=== PATIENT | male | born 1960 | race Caucasian/White ===

== ENCOUNTER → 2016-07-09 | Outpatient (CLI) | payer OTHER ==
--- NOTE | 2016-07-09 09:54 | DX ---
Right Ankle, Three Views History: ORIF distal tibia and ankle fracture status post hardware placement. Comparison: June 06, 2016. Findings: Fixation plate and multiple screws through the distal tibia and talus with hardware fusion. The tibiotalar joint space appears slightly less evident than previous study suggesting partial bony fusion. Distal fibula has been resected. There is lateral soft tissue swelling. Plantar calcaneal sp ur. Impacted fracture of the posterior aspect of the talus again noted. On the lateral view, there is no evidence of complete fusion. Slight bone resorption also noted in the medial malleolus and distal tibial cortex. Impression: Tibiotalar fusion hardware demonstrates possible slight callus formation at the tibiotala r joint space, although joint space still remains partially evident without evidence of complete bony fusion.
== END ==
LOC: BMCIMAGING 08:49
PROVIDERS: ATTEND Podiatrist Foot & Ankle Surgery
DX: Z47.89 Encounter for other orthopedic aftercare (principal)

== ENCOUNTER → 2016-08-01 | Outpatient (CLI) | payer OTHER ==
--- NOTE | 2016-08-01 09:27 | DX ---
Right Foot , 3 weightbearing views History: Postoperative 9 weeks, delayed healing, Z09, neuropathy Comparison: December 08, 2014 Findings: There is new orthopedic plating of the distal fibula, associated with pretibial soft tissue swelling. There is a healing posterior malleolar fracture. There is a subtle suggestion of early dif fuse bone loss developing in the foot, greatest in the mid foot, consistent with disuse osteoporosis. There is new degenerative cyst formation on either side of the first metatarsophalangeal joint. Ther e is a chronic stable healed erosion involving the proximal lateral base of the proximal phalanx of t he fifth toe. There are chronic erosions involving the fifth metatarsal head. There is no periosteal reaction or evidence for osteomyelitis. There are chronic dorsal and plantar calcaneal spurs. 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
--- NOTE | 2016-08-01 10:54 | DX ---
Right ankle series weightbearing 3 views 0905 hours. History: Rule out delayed healing. Follow-up arthrodesis. Findings: Comparison to July 09, 2016 and studies dating back to May 19, 2016. Internal fixation plate and arthrodesis screws are seen across the tibiotalar joint. There has been s urgical resection of the distal fibula. There may be some early bony fusion along the anterior aspect of the tibiotalar joint. There is persistent lucency along the posterior aspect as well as midportio n of the tibiotalar joint on the lateral view. The hardware is in stable position and alignment. The talar dome appears to be flattened anteriorly. No erosions are seen. Moderate calcaneal spurs are sta ble. Mild diffuse soft tissue swelling is stable about the ankle joint. Impression: 1. Stable position of hardware from prior arthrodesis procedure right ankle. 2. Resection of the distal right fibula. 3. Early bony fusion is suspected across the anterior aspect of the tibiotalar joint. 4. Stable moderate calcaneal spurs.
== END ==
LOC: BMCIMAGING 08:35
PROVIDERS: ATTEND Podiatrist Foot & Ankle Surgery
DX: Z09 Encounter for follow-up examination after completed treatment for conditions other than malignant neoplasm (principal); Z98.1 Arthrodesis status; M77.31 Calcaneal spur, right foot

== ENCOUNTER → 2016-09-19 | Outpatient (CLI) | payer MEDICAID | LOC: BMCIMAGING 08:52 | PROVIDERS: ATTEND Podiatrist Foot & Ankle Surgery | DX: Z09 Encounter for follow-up examination after completed treatment for conditions other than malignant neoplasm (principal) ==

== ENCOUNTER → 2016-12-09 | Outpatient (CLI) | payer MEDICAID | LOC: FIMAGING 07:37 | PROVIDERS: ATTEND Podiatrist Foot & Ankle Surgery | DX: Z09 Encounter for follow-up examination after completed treatment for conditions other than malignant neoplasm (principal); Z98.1 Arthrodesis status; M19.071 Primary osteoarthritis, right ankle and foot ==

== ENCOUNTER 2017-04-16 07:11 | Day surgery (SDC) | payer MEDICAID ==
[2017-04-16] MEDS ORDERED: fentaNYL 100 MCG/2 ML INJ IVP ONE (07:13)
[2017-04-16] MEDS ORDERED: ATROPINE SULFATE 1 MG/10 ML SYR IVP ONE (07:13)
[2017-04-16] MEDS ORDERED: BENZOCAINE UNIT DOSE SPRAY HURRICAINE MM ONE (07:13)
[2017-04-16] MEDS ORDERED: MIDAZOLAM 2 MG/2 ML VIAL IVP ONE (07:13)
[2017-04-16] MEDS ORDERED: NS 500 ML IV ONE (07:13)
--- NOTE | 2017-04-16 07:32 | CPEKG ---
Heart Rate: 72 RR Interval: 833 QRSD Interval: 110 QT Interval: 408 QTC Interval: 447 QRS [place]: -32 T Wave [place]: 38 EKG Severity - ABNORMAL ECG - EKG Impression: ATRIAL FIBRILLATION, V-RATE 55-91 EKG Impression: NONSPECIFIC INTRAVENTRICULAR CONDUCTION DELAY EKG Impression: ATRIAL FIBRILLATION HAS REPLACED NORMAL SINUS RHYTHM ON PRIOR ECG Electronically Signed By: Ace Parikh 19-Apr-2017 08:38:21
[2017-04-16 08:02] LABS: ANION GAP 9 mEq/L (8-16); CALCIUM 9.7 mg/dL (8.5-10.4); CARBON DIOXIDE 24 mEq/l (22-31); CHLORIDE 105 mEq/L (97-110); CREATININE 0.9 mg/dL (0.7-1.3); GLOMERULAR FILTRATION RATE > 60; GLUCOSE 100 mg/dL (70-100); POTASSIUM 4.5 mEq/L (3.5-5.2); SODIUM 138 mEq/L (134-144)
[2017-04-16 08:23] LABS: INR 1.23 (0.83-1.16); PROTIME(PATIENT) 15.5 SEC (12.0-15.0)
[2017-04-16 08:24] LABS: APTT 31.5 SEC (23.0-38.0)
[2017-04-16] MEDS ORDERED: APIXABAN 5 MG TAB ONE (08:57)
[2017-04-16] MEDS ORDERED: PROPOFOL/EMULSION 500 MG/50 ML BOTTLE IV ONE (09:04)
--- NOTE | 2017-04-16 09:04 | PDANEPAE ---
ANE History of Present Illness a fluter ANE Past Medical History - Cardiovascular History Hx Hypertension: No Hx Arrhythmias: No Hx Chest Pain: No Hx Coronary Artery / Peripheral Vascular Disease: No Hx CHF / Valvular Disease: No Hx Palpitations: No - Pulmonary History Hx COPD: No Hx Asthma/Reactive Airway Disease: No Hx Recent Upper Respiratory Infection: No Hx Oxygen in Use at Home: No Hx Sleep Apnea: Yes - Neurologic History Hx Cerebrovascular Accident: No Hx Seizures: No Hx Dementia: No - Endocrine History Hx Diabetes: No - Renal History Hx Renal Disorders: No - Liver History Hx Hepatic Disorders: Yes Hepatic History Comment: hereditary hemechromatosis - Neurological & Psychiatric Hx Hx Neurological and Psychiatric Disorders: Yes Neurological / Psychiatric History Comment: neuropathy since 2010 back surgery. - Cancer History Hx Cancer: No - Congenital Disorder History Hx Congenital Disorders: No - GI History Hx Gastrointestinal Disorders: No - Other Health History Other Health History: NEUROPATHY - Chronic Pain History Chronic Pain: Yes (RT ANKLE) - Surgical History Prior Surgeries: wrist surgery Feb 2014,. LUMBAR FUSION. LT FOOT TOE AMPUTATION ANE Review of Systems Review of Systems: ANE Patient History - Allergies Allergies/Adverse Reactions: Shellfish *RETIRED-03/15/12 [Shellfish] Allergy (Severe, Verified 05/14/14 08:44 ) Anaphylaxis WALNUTS, CASHEWS Allergy (Severe, Uncoded 05/14/14 08:44) Anaphylaxis - Home Medications Home Medications: Gabapentin [Neurontin 300 MG (*)] 600 mg PO TID 05/19/16 [Last Taken 05/19/16 12 :00] Eliquis 5 mg PO 04/16/17 [Last Taken Unknown] Propranolol HCl 20 mg PO DAILY 04/16/17 [Last Taken Unknown] - Smoking Hx Smoking Status: Never smoked - Family Anes Hx Family Hx Anesthesia Complications: no ANE Labs/Vital Signs - Labs Result Diagrams: 04/16/17 07:30 - Vital Signs Height: 205.74 cm Weight: 136.078 kg ANE Physical Exam - Airway Neck exam: FROM Mallampati Score: Class 1 Mouth exam: normal dental/mouth exam - Pulmonary Pulmonary: no respiratory distress - Cardiovascular Cardiovascular: regular rate and rhythym - ASA Status ASA Status: II ANE Anesthesia Plan Total IV Anesthesia: Yes
--- NOTE | 2017-04-16 09:23 | POSTANESTH ---
Post Anesthetic Evaluation Cardiovascular Status: Normal, Stable Respiratory Status: Normal, Stable Level of Consciousness/Mental Status: Can Participate in Eval Pain Control: Adequate, Prn Tx Ordered Nausea/Vomiting Control: Adequate, Prn Tx Ordered Complications Possibly Related to Anesthesia: None Noted
--- NOTE | 2017-04-16 09:24 | EPPROC ---
Electrophysiology Procedure Note: Due to the presence of questionable RADHA clot, CV was not performed Patient Problems: Problems Problem Status Onset Chest pain Acute S/P ankle fusion Acute
--- NOTE | 2017-04-16 09:24 | PDHPUP ---
History & Physical Update H&P update statement: This history and physical update is based on an assessment of the patient which was completed after admission or registration (within 24 hours), but prior to the surgery/procedure. H&P update: H&P reviewed & patient examined, no change in patient's condition since H&P completed
[2017-04-16] MEDS ORDERED: APIXABAN 5 MG TAB PO SCH (13:00)
== END 2017-04-16 11:00 | disposition home or self-care (01) ==
LOC: FCATH 07:11
PROVIDERS: ATTEND Internal Medicine Cardiovascular Disease
PROC: B245ZZ4 Ultrasonography of Left Heart, Transesophageal (ICD-10-PCS; principal; 2017-04-16)
DX: I48.91 Unspecified atrial fibrillation (principal); R94.39 Abnormal result of other cardiovascular function study; I10 Essential (primary) hypertension; E83.119 Hemochromatosis, unspecified; Z79.01 Long term (current) use of anticoagulants; Z53.09 Procedure and treatment not carried out because of other contraindication
CPT/HCPCS: J2704

== ENCOUNTER 2017-05-18 08:40 | Day surgery (SDC) | payer MEDICAID ==
[2017-05-18] MEDS ORDERED: fentaNYL 100 MCG/2 ML INJ IVP ONE (09:00)
[2017-05-18] MEDS ORDERED: BENZOCAINE UNIT DOSE SPRAY HURRICAINE MM ONE (09:00)
[2017-05-18] MEDS ORDERED: NS 500 ML IV ONE (09:00)
[2017-05-18] MEDS ORDERED: ATROPINE SULFATE 1 MG/10 ML SYR IVP ONE (09:00)
[2017-05-18] MEDS ORDERED: MIDAZOLAM 2 MG/2 ML VIAL IVP ONE (09:00)
--- NOTE | 2017-05-18 09:16 | CPEKG ---
Heart Rate: 84 RR Interval: 714 QRSD Interval: 106 QT Interval: 412 QTC Interval: 488 QRS [place]: -31 T Wave [place]: 35 EKG Severity - ABNORMAL ECG - EKG Impression: ATRIAL FIBRILLATION EKG Impression: VENTRICULAR PREMATURE COMPLEX EKG Impression: BORDERLINE IVCD WITH LAD EKG Impression: BORDERLINE PROLONGED QT INTERVAL Electronically Signed By: Ace Parikh 18-May-2017 22:04:40
[2017-05-18 09:42] LABS: INR 1.75 (0.83-1.16); PROTIME(PATIENT) 20.5 SEC (12.0-15.0)
[2017-05-18 09:43] LABS: APTT 36.1 SEC (23.0-38.0)
[2017-05-18 09:49] LABS: ANION GAP 12 mEq/L (8-16); CALCIUM 9.3 mg/dL (8.5-10.4); CARBON DIOXIDE 25 mEq/l (22-31); CHLORIDE 102 mEq/L (97-110); CREATININE 0.9 mg/dL (0.7-1.3); GLOMERULAR FILTRATION RATE > 60; GLUCOSE 98 mg/dL (70-100); MAGNESIUM 1.9 mg/dL (1.6-2.3); POTASSIUM 4.7 mEq/L (3.5-5.2); SODIUM 139 mEq/L (134-144)
--- NOTE | 2017-05-18 10:28 | PDANEPAE ---
ANE History of Present Illness Patients presents for CHUY/Cardioversion ANE Past Medical History - Cardiovascular History Hx Hypertension: Yes Hx Arrhythmias: Yes Hx Chest Pain: No Hx Coronary Artery / Peripheral Vascular Disease: No Hx CHF / Valvular Disease: No Hx Palpitations: No - Pulmonary History Hx COPD: No Hx Asthma/Reactive Airway Disease: No Hx Recent Upper Respiratory Infection: No Hx Oxygen in Use at Home: No Hx Sleep Apnea: Yes - Neurologic History Hx Cerebrovascular Accident: No Hx Seizures: No Hx Dementia: No - Endocrine History Hx Diabetes: No - Renal History Hx Renal Disorders: No - Liver History Hx Hepatic Disorders: Yes Hepatic History Comment: hereditary hemechromatosis - Neurological & Psychiatric Hx Hx Neurological and Psychiatric Disorders: Yes Neurological / Psychiatric History Comment: neuropathy since 2010 back surgery. - Cancer History Hx Cancer: No - Congenital Disorder History Hx Congenital Disorders: No - GI History Hx Gastrointestinal Disorders: No - Other Health History Other Health History: NEUROPATHY - Chronic Pain History Chronic Pain: Yes (RT ANKLE) - Surgical History Prior Surgeries: wrist surgery Feb 2014,. LUMBAR FUSION. LT FOOT TOE AMPUTATION ANE Review of Systems Review of Systems: ANE Patient History - Allergies Allergies/Adverse Reactions: Shellfish *RETIRED-03/15/12 [Shellfish] Allergy (Severe, Verified 05/14/14 08:44 ) Anaphylaxis WALNUTS, CASHEWS Allergy (Severe, Uncoded 05/14/14 08:44) Anaphylaxis - Home Medications Home medications: home medication list seen and reviewed Home Medications: Gabapentin [Neurontin 300 MG (*)] 600 mg PO TID 05/19/16 [Last Taken 05/19/16 12 :00] Eliquis 5 mg PO 04/16/17 [Last Taken Unknown] Propranolol HCl 20 mg PO DAILY 04/16/17 [Last Taken Unknown] - NPO status NPO Status: no food or drink >8 hours - Anes Hx Anes Hx: no prior problems - Smoking Hx Smoking Status: Never smoked - Family Anes Hx Family Hx Anesthesia Complications: no ANE Labs/Vital Signs - Labs Result Diagrams: 05/18/17 09:25 ANE Physical Exam - Airway Neck exam: FROM, increased neck circumference Mallampati Score: Class 2 Mouth exam: normal dental/mouth exam - Pulmonary Pulmonary: no respiratory distress - Cardiovascular Cardiovascular: irregularly irregular - ASA Status ASA Status: III ANE Anesthesia Plan Anesthesia Plan: GA with mask (RBA discussed)
[2017-05-18] MEDS ORDERED: PROPOFOL 200 MG/20 ML VIAL ONE (10:29)
[2017-05-18] MEDS ORDERED: LIDOCAINE 2% 100 MG/5 ML SYR ONE (10:29)
--- NOTE | 2017-05-18 10:43 | PDGENHP ---
History & Physical Chief Complaint: atrial fibrillation History of Present Illness: a fib Pertinent Past, Social, Family History: on chronic anticoagulation and rate control Relevant Physical Exam: clear lungs. ireeg irreg no murmurs..strong pulses Cardiorespiratory Assessment: 3-3-2
--- NOTE | 2017-05-18 11:01 | PDTEE1 ---
CHUY Cardioversion Procedure Procedure: electrical cardioversion, transesophageal echo Indications: atrial fibrillation Consent: signed and in chart Anticoagulation: eliquis Procedural Details: Pads were placed in anterior-posterior position. CHUY probe was advanced and standard images obtained. There is no evidence of left atrial or left atrial appendage thrombus. Synchronized cardioversion attempt #1: 200J Results: normal sinus rhythm Conclusions: successful CHUY cardioversion Conclusion Comment: 1. continue current meds and f/u at [facility] as scheduled Patient Problems: Problems Problem Status Onset Chest pain Acute S/P ankle fusion Acute
--- NOTE | 2017-05-18 11:05 | CPEKG ---
Heart Rate: 75 RR Interval: 800 P-R Interval: 192 QRSD Interval: 112 QT Interval: 436 QTC Interval: 487 P [place]: 45 QRS [place]: -16 T Wave [place]: 26 EKG Severity - ABNORMAL ECG - EKG Impression: SINUS RHYTHM EKG Impression: NONSPECIFIC INTRAVENTRICULAR CONDUCTION DELAY EKG Impression: SINUS RHYTHM HAS ONCE AGAIN REPLACED ATRIAL FIBRILLATION NOTED ON PRIOR ECG Electronically Signed By: Ace Parikh 18-May-2017 22:05:19
--- NOTE | 2017-05-18 16:15 | ECHO ---
[email or web address] [place] [id number] Main: [phone] Fax: Transesophageal Echocardiography Name: NICOLAS RICARDO MR#: [id number] Study Date: 05/18/2017 Study Time: 10:33 AM Date of : 1960 Age: 56 year(s) Height: ( ) Weight: ( ) BSA: Gender: Male Examination: CHUY Indication: Pre Cardioversion Image Quality: Contrast: Requested by: Caden Castro Heart Rate: Rhythm: BP: / Procedure Staff Speech And Hearing Director: Greyson Caballero Reading Physician: Caden Castro Requesting Provider: CHUY Exam Details Conclusions: No color flow doppler in the left atrial appendage. Measurements: Chambers Valvular Assessment AV/MV Valvular Assessment TV/PV Normal Normal Normal Name Value Range Name Value Range Name Value Range Additional Measurements: Findings: Left Atrial Appendage: No color flow doppler in the left atrial appendage. Normal PW-Doppler flow pattern. No thrombus in left appendage. l1n (No Signature Object) Patient: NICOLAS RICARDO Study Date: 05/18/2017 Page 1 of 1 10:33 AM [id number]
== END 2017-05-18 11:43 | disposition home or self-care (01) ==
LOC: FCATH 08:40
PROVIDERS: ATTEND Internal Medicine Cardiovascular Disease
PROC: B245ZZ4 Ultrasonography of Left Heart, Transesophageal (ICD-10-PCS; principal; 2017-05-18)
PROC: 5A2204Z Restoration of Cardiac Rhythm, Single (ICD-10-PCS; principal; 2017-05-18)
DX: I48.91 Unspecified atrial fibrillation (principal); Z79.01 Long term (current) use of anticoagulants
CPT/HCPCS: J2001; J2704

== ENCOUNTER → 2017-09-18 | Outpatient (CLI) | payer MEDICAID | LOC: BMCIMAGING 09:44 | PROVIDERS: ATTEND Podiatrist Foot & Ankle Surgery | DX: M19.271 Secondary osteoarthritis, right ankle and foot (principal); Z47.89 Encounter for other orthopedic aftercare ==

== ENCOUNTER → 2017-10-15 | Outpatient (CLI) | payer OTHER | LOC: FIMAGING 13:34 | PROVIDERS: ATTEND Orthopaedic Surgery | DX: Z98.1 Arthrodesis status (principal); T84.418A Breakdown (mechanical) of other internal orthopedic devices, implants and grafts, initial encounter; M24.174 Other articular cartilage disorders, right foot ==

== ENCOUNTER → 2017-12-01 | Outpatient (CLI) | payer OTHER ==
[~2017-12-01] MED LIST: IOPAMIDOL (ISOVUE-300) 100 ML BTL ONE
== END ==
LOC: FIMAGING 13:17
PROVIDERS: ATTEND Emergency Medicine
DX: R10.32 Left lower quadrant pain (principal)
CPT/HCPCS: Q9967

== ENCOUNTER 2018-02-24 15:25 | Emergency (ER) | payer OTHER ==
--- NOTE | 2018-02-24 16:31 | EDPHY ---
H & P Smoking Status: Never smoked Time Seen by Provider: 02/24/18 15:50 HPI/ROS: CHIEF COMPLAINT: Pain right knee HISTORY OF PRESENT ILLNESS: 57-year-old male presents to the emergency department with pain and swelling to his right knee. The patient states that he fell about 10 days ago and sustained an abrasion. He fell on some cement. He fell because he had a splint on his right ankle for which she had recent surgery for. He saw his orthopedic surgeon 2 days ago and had x-rays taken of the right knee which reveal no fractures. At that time he did not have a lot of swelling to the area. He states over specially over last 24 hr he has noticed increasing redness and swelling. He saw his primary care provider today who sent him to the emergency department for evaluation. Last tetanus shot was in 2011. ROS: No fevers, chills, lymphangitis, pain in his groin. He denies pain in the right hip. (Sindhu Gupta) Past Medical/Surgical History: Orthopedic surgeries, atrial fibrillation (Sindhu Gupta) Social History: Single and lives in [place] (Sindhu Gupta) Physical Exam: Examination the right knee reveals swelling with mild effusion. He has superficial abrasion to the anterior aspect of the right knee. It is warm to the touch. It is erythematous. There is no lymphangitis. He has full flexion and full extension of his right knee. He has no pain with just very small passive range of motion of the right knee. He has a splint noted to the right ankle. He is afebrile and nontoxic-appearing. (Sindhu Gupta) Constitutional: Initial Vital Signs Temperature (C) 36.5 C 02/24/18 15:29 Heart Rate 80 02/24/18 15:29 Respiratory Rate 17 02/24/18 15:29 Blood Pressure 144/92 H 02/24/18 15:29 O2 Sat (%) 94 02/24/18 15:29 O2 Delivery Mode Room Air Allergies/Adverse Reactions: Shellfish *RETIRED-03/15/12 [Shellfish] Allergy (Severe, Verified 02/24/18 15:28 ) Anaphylaxis WALNUTS, CASHEWS Allergy (Severe, Uncoded 05/14/14 08:44) Anaphylaxis Home Medications: Medication Instructions Recorded Gabapentin [Neurontin 300 MG (*)] 600 mg PO TID 05/19/16 Eliquis 5 mg PO 04/16/17 Propranolol HCl 20 mg PO DAILY 04/16/17 Cephalexin [Keflex] 500 mg PO QID #28 cap 02/24/18 Sulfamethox/Tmp 800/160 mg 1 tab PO BID #14 tab 02/24/18 [Bactrim DS] MDM/Departure - MDM Medications Given: Discontinued Medications Cephalexin HCl (Keflex) 500 mg PO EDNOW ONE PRN Reason: Protocol Stop: 02/24/18 16:34 Last Admin: 02/24/18 16:41 Dose: 500 mg ED Course/Re-evaluation: I saw the patient with the physician's assistant fitness manager. I personally evaluated the patient. General Appearance: Alert and no distress. Head: Pupils equal. Normal. Respiratory: No respiratory distress. Cardiac: regular rate and rhythm. Extremities: Patient has a small abrasion over his right knee. There is mild surrounding erythema. Patient has full range of motion of his right knee. Right lower extremity lower cast is in place. Skin: No rashes or lesions. Neuro: Alert. Normal mood and affect. I discussed the findings with the patient. I answered all his questions. I discussed limitations of the exam. At this time I feel he should be treated with antibiotics. I do not feel he needs his knee tapped. I discussed the pros and cons of this. (Ellie Le) 57-year-old male presents to the emergency department with possible infection to the right knee. Clinically I think this patient likely has evidence of cellulitis. He has no pain with small, passive range of motion of the right knee. At 1 point when I went back to re-evaluate the patient the patient was lying supine with his both knees flexing his feet flat on the bed. He is afebrile and nontoxic-appearing. The case was discussed with Dr. Ellie Le, secondary supervising physician , who also evaluated the patient and agrees with oral antibiotics. He does not recommend aspirating fluid from the knee joint. The patient as well as daughter at bedside understands the risks associated with aspiration of fluid. I spoke with the assistant fitness manager working with his orthopedic surgeon, , who spoke with the nurse practitioner in the office and they agree with oral antibiotics. They will follow up closely and arrange for a follow-up appointment to be seen this week. The patient was given strict instructions return if he developed fever, increasing pain or swelling, lymphangitis, groin pain or swelling. I also encouraged him to apply warm moist heat to his right knee. He had been applying ice and I discouraged him from continuing to do this. Patient was given prescription for Keflex and Bactrim. (Sindhu Gupta) - Depart Disposition: Home, Routine, Self-Care Clinical Impression: Cellulitis of right knee Condition: Good Instructions: Cellulitis (ED) Additional Instructions: Keflex and Bactrim as prescribed for 1 week. Apply warm compresses as discussed. Follow up with your orthopedic surgeon this week to recheck. Return to the emergency department sooner if you develop red streaking up your leg, pain in your groin or swelling in your groin, fevers or chills, increasing pain, or if you feel worse in any way. Prescriptions: Cephalexin [Keflex] 500 mg PO QID #28 cap Sulfamethox/Tmp 800/160 mg [Bactrim DS] 1 tab PO BID #14 tab Referrals: Rogelio Fernandez MD [Primary Care Provider] - As per Instructions
[2018-02-24] MEDS ORDERED: CEPHALEXIN 500 MG CAP PO ONE (16:33)
[2018-02-24 17:04] VITALS: BP 124/78
== END 2018-02-24 17:04 | disposition home or self-care (01) ==
DX: L03.115 Cellulitis of right lower limb (principal)

== ENCOUNTER 2018-12-25 15:39 | Inpatient (IN) | payer OTHER | END 2018-12-28 10:53 | disposition home or self-care (01) | LOC: F3E 17:40 ==